=== PATIENT | male | born 1985 | race Caucasian/White ===

== ENCOUNTER 2020-04-07 08:39 | Observation (INO) | payer BC ==
[2020-04-02 15:45] LABS: BASOPHILS # (AUTO) 0.1 (0.0-0.1); BASOPHILS % 0.5 % (0.0-1.0); EOSINOPHILS # (AUTO) 0.2 (0.0-0.4); EOSINOPHILS % 1.5 % (0.0-6.0); HEMATOCRIT 48.2 % (38.2-49.6); HEMOGLOBIN 15.9 g/dL (14.0-18.0); LYMPHOCYTES # (AUTO) 2.5 (1.0-3.2); LYMPHOCYTES % 21.4 % (18.0-39.1); MEAN CORPUSCULAR HEMOGLOBIN 26.8 pg (28-32); MEAN CORPUSCULAR VOLUME 81.3 fL (81-99); MONOCYTES # (AUTO) 0.8 (0.2-0.8); MONOCYTES % 6.8 % (4.4-11.3); NEUTROPHILS # (AUTO) 8.1 (2.1-6.9); NEUTROPHILS % 69.5 % (38.7-80.0); PLATELET COUNT 317 x10e3/uL (140-360); RED BLOOD COUNT 5.93 x10e6/uL (4.3-5.7); RED CELL DISTRIBUTION WIDTH 13.4 % (11.7-14.4)
[~2020-04-07] VITALS: Ht 177.8 cm; Wt 104.3 kg
[~2020-04-07 08:39] MED LIST: METOPROLOL
[2020-04-07] MEDS ORDERED: LISINOPRIL10 MG PO (10:19)
[2020-04-07] MEDS ORDERED: BUPIVACAINE 0.5%/EPI 30 ML SDV INJ ONE (11:05)
[2020-04-07] MEDS ORDERED: LIDOCAINE HCL 1% LOCAL INJ 20 ML VIAL ONE (11:05)
[2020-04-07] MEDS ORDERED: BUPIVACAINE LIPOSOME/PF 266 MG/20 ML IJ ONE (11:05)
[2020-04-07] MEDS ORDERED: LIDOCAINE HCL 2% 30 ML TUBE ONE (11:05)
[2020-04-07] MEDS ORDERED: ACETAMINOPHEN 1000 MG/100 ML IV PRN (13:45)
[2020-04-07] MEDS ORDERED: DIPHENHYDRAMINE HCL INJ 50 MG/ML VIAL ONE (14:03)
--- NOTE | 2020-04-07 14:15 | Operative Report ---
DATE OF PROCEDURE: 04/07/2020 SURGEON: Hunter Peralta MD PREOPERATIVE DIAGNOSIS: Thrombosed prolapsing internal and external hemorrhoids. POSTOPERATIVE DIAGNOSIS: Thrombosed prolapsing internal and external hemorrhoids. OPERATION PERFORMED: Internal and external hemorrhoidectomy. ANESTHESIA: General. COMPLICATIONS: None. ESTIMATED BLOOD LOSS: Minimal. DESCRIPTION OF PROCEDURE: With the patient lying in bed in the lithotomy position under good general anesthesia, the perineum was prepped with Betadine solution and draped in the usual manner. A complete anorectal block was then performed with 0.25% Marcaine and 1% Xylocaine mixed in equal parts. After this was done, examination revealed very extensive external hemorrhoids, extending from about the 3 o'clock position to the 5 o'clock position, and from the 6 o'clock position to the 9 o'clock position. They had the corresponding internal component. The internal component of both groups was then ligated with 0 chromic suture. The external component was then resected and all of the clots were slowly and carefully excised and removed. All of the hemorrhoids were totally resected and removed. Hemostasis was then ascertained and the skin and mucosa were then reapproximated with interrupted sutures of 3-0 chromic. A Gelfoam pack impregnated with Xylocaine was placed. A dressing was applied. The sponge, lap, and needle counts were correct. The patient tolerated the procedure well and returned to the recovery room in stable condition. Hunter Peralta MD JLR/MODL /[id number]
[2020-04-07] MEDS ORDERED: DEXAMETHASONE SOD PHOS INJ 4 MG/ML VIAL ONE (14:57)
[2020-04-07] MEDS ORDERED: PROPOFOL IV EMULSION 10 MG/ML 20 ML VIAL ONE (14:57)
[2020-04-07] MEDS ORDERED: SEVOFLURANE INHAL SOLN 250 ML PEN BTL ONE (14:57)
[2020-04-07] MEDS ORDERED: LIDOCAINE HCL 2% LOCAL INJ 5 ML SDV VIAL INJ ONE (14:57)
[2020-04-07] MEDS ORDERED: EPHEDRINE SULFATE INJ 50 MG/ML VIAL ONE (14:57)
[2020-04-07] MEDS ORDERED: KETOROLAC TROMETHAMINE 30 MG/ML VIAL ONE (14:57)
[2020-04-07] MEDS ORDERED: ONDANSETRON HCL INJ 2MG/ML 2ML 2 MG/ML VIAL ONE (14:57)
[2020-04-07 15:01] VITALS: BP 116/78
[2020-04-07 15:06] VITALS: BP 116/78
[2020-04-07 15:11] VITALS: BP 116/78
--- NOTE | 2020-04-07 15:16 | NUR ---
patient received from PACU via stretcher. see admit assess. vitals stable. dressing to rectal area draining bloody output. SCD's in place.
[2020-04-07] MEDS: HYDROCODONE/APAP 7.5MG-325MG 1 EA TAB PO PRN (15:23)
[2020-04-07] MEDS: DEXTROSE 5%/LACTATED RINGERS 1,000 ML IV SCH (15:23)
[2020-04-07] MEDS: CEFOXITIN 1GM/ D5W 50ML 50 ML IV SCH (16:45)
[2020-04-07 20:00] VITALS: BP 127/85
[2020-04-07 20:10] VITALS: BP 127/85
--- NOTE | 2020-04-07 20:10 | NUR ---
PATIENT RESTING IN BED IN STABLE CONDITION, NO SIGNS OF DISTRESS NOTED. IV FLUIDS ARE RUNNING AT ORDERED RATE AND PATIENT VOICES PAIN AT A LEVEL OF 4, AND REQUESTS NO MEDICATION AT THIS TIME. NO EXCESSIVE BLEEDING NOTED FROM SURGICAL SITE. BED IS IN LOWEST POSITION, BOTH SIDE RAILS ARE UP, CALL LIGHT IS WITHIN EASY REACH, WILL CONTINUE TO MONITOR.
[2020-04-07] MEDS ORDERED: MAGNESIUM/ALUMINUM/SIMETHICONE 30 ML UDC PO PRN (20:30)
[2020-04-07] MEDS ORDERED: PANTOPRAZOLE 40 MG 10ML VIAL IV ONE (20:58)
[2020-04-07] MEDS: HYDROMORPHONE 1MG/1ML INJ IV PRN (23:02)
[2020-04-08] VITALS: BP 122/66
[2020-04-08] MEDS: DEXTROSE 5%/LACTATED RINGERS 1,000 ML IV SCH
[2020-04-08] MEDS: CEFOXITIN 1GM/ D5W 50ML 50 ML IV SCH
[2020-04-08] MEDS: HYDROMORPHONE 1MG/1ML INJ IV PRN ×3 (02:43→11:11)
[2020-04-08 04:00] VITALS: BP 126/79
[2020-04-08 08:00] VITALS: BP 103/55
[2020-04-08] MEDS: HYDROCODONE/APAP 7.5MG-325MG 1 EA TAB PO PRN (08:07)
[2020-04-08 08:36] VITALS: BP 103/55
[2020-04-08] MEDS ORDERED: LISINOPRIL 10 MG TAB PO SCH (09:00)
[2020-04-08 12:00] VITALS: BP 128/71
[2020-04-08] MEDS ORDERED: NORCO 7.5-3251 EACH PO (13:21)
[2020-04-08] MEDS ORDERED: SURFAK240 MG PO (13:22)
[2020-04-08] MEDS ORDERED: KEFLEX500 MG PO (13:22)
== END 2020-04-08 13:40 | disposition hospice, home (50) ==
LOC: OR 08:39 → PACU V 13:47 → MED/SURG 15:05
PROVIDERS: ADMIT Surgery; ATTEND Surgery
DX: K64.8 Other hemorrhoids (principal); Z11.59 Encounter for screening for other viral diseases; Z01.812 Encounter for preprocedural laboratory examination
CPT/HCPCS: 36415; 46260; 85025; 93005; C9113; G0378 ×2; J1100; J1170 ×2; J1200; J1885; J2001 ×2; J2405; J2704; J7121 ×2; U0002

== ENCOUNTER 2020-04-17 20:53 | Observation (INO) | payer BC ==
[~2020-04-17] VITALS: Ht 177.8 cm; Wt 104.3 kg
[~2020-04-17 20:53] MED LIST changes: +KEFLEX500 MG PO; +LISINOPRIL10 MG PO; +NORCO 7.5-3251 EACH PO; +SURFAK240 MG PO
--- OUTSIDE RECORDS SUMMARY | 2020-04-17 21:22 | XMS REPORT | Continuity of Care Document ---
Author Author [facility] Organization [facility] Address [address] [place] [address] Phone Unavailable Care Team Providers Care Frontend Engineer Name Role Phone SEAN DO AVINA PCP Payers Payer Name Policy Type Policy Number Effective Date Expiration Date Samara Burleson [employer] Ppo [id number] 2016 00:00:00 [facility] Problems Condition Name Condition Details Condition Category Status Onset Date Resolution Date Last Treatment Date Treating Clinician Comments Source Problem Condition Active [facility] Allergies, Adverse Reactions, Alerts This patient has no known allergies or adverse reactions. Social History Social Habit Start Date Stop Date Quantity Comments Source Sex Assigned At 1985 00:00:00 1985 00:00:00 Male [facility] Medications Ordered Medication Name Filled Medication Name Start Date Stop Da te Current Medication? Ordering Clinician Indication Dosage Frequency Signature (SIG) Comments Components Source Cephalexin Monohydrate (Keflex) 500 Mg CAPSULE Cephale dori Monohydrate (Keflex) 500 Mg CAPSULE Yes Three Times A Day [facility] Docusate Calcium (Surfak) 240 Mg CAPSULE Docusate Calc ium (Surfak) 240 Mg CAPSULE Yes 500 Twice A Day [facility] Hydrocodone Bit/Acetaminophen ([place] 7.5-325 Tablet) 1 Each TABLET Hydrocodone Bit/Acetaminophen ([place] 7.5-325 Tablet) 1 Each TABLET Yes 1 Every 4 Hours as needed for [facility] Lisinopril Lisinopril Yes 10 Daily [facility] Metoprolol Metoprolol 2020-04-07 00:00:00 No [facility] Vital Signs Vital Name Observation Time Observation Value Comments Source Body Temperature 2020-04-08 12:00:00 97.7 [degF] [facility] Weight 2020-04-07 15:03:00 230 [lb_av] [facility] BMI (Body Mass Index) 2020-04-07 15:03:00 33.0 kg/m2 [facility] Procedures This patient has no known procedures. Plan of Care Planned Activity Planned Date Details Comments Source Instructions Hypertension [facility] Encounters Start Date/Time End Date/Time Encounter Type Admission Type Attendi [facility] Care Department Encounter ID Source 2020-04-07 13:47:00 2020-04-08 13:40:00 Discharged Inpatient (obs) [facility] [id number] [facility] Results Test Description Test Time Test Comments Results Result Comments Source Fluoroscopic procedure less than one hour duration 7 15:58:00 Test Item Coronavirus (PCR) (test code = Coronavirus (PCR)) NOT DETECTED NOTD ETECTED [employer] Aptima SARS-CoV-2 assay is a nucleic amplification test intended for the qualitative detection of RNA from SARS-CoV-2 from nasopharyngeal (MALTED MILK MIXER) specimens . It is used under Emergency Use Authorization (EUA) by FDA.A positive result is indicative of the presence of SARS-CoV-2 RNA. Clinical correlation with patient history and other diagnostic information is necessary to determine patient infe ction status.A negative (Not Detected) result does not preclude SARS-CoV-2 infec tion. Clinical Correlation with patient history and other diagnostic information should be used in patient management decisions.Invalid: Unable to generate a va lid result on this specimen. Please submit a new specimen for reprat testing oc clinically indicated.Tesing performed by:[facility] [address] [place] [address] [id number], Paco Bentley MD, PhD [facility] automated count (number/volume)2020-04-02 15:39:00* Test Item Value Reference Range Interpretation Comments White Blood Count (test code = 6690-2) 11.70 4.8-10.8 [facility] count (number/volume)2020-04-02 15:39:00* Test Item Value Reference Range Interpretation Comments Red Blood Count (test code = 789-8) 5.93 4.3-5.7 [facility] hemoglobin measurement (moles/volume)2020-04-02 15:39:00* Test Item Value Reference Range Interpretation Comments Hemoglobin (test code = 93644-1) 15.9 14.0-18.0 [facility] hematocrit (volume fraction)2020-04-02 15:39:00* Test Item Value Reference Range Interpretation Comments Hematocrit (test code = 4544-3) 48.2 38.2-49.6 [facility] mean corpuscular fiuwph7440-61-35 15:39:00* Test Item Value Reference Range Interpretation Comments Mean Corpuscular Volume (test code = 787-2) 81.3 81-99 [facility] mean corpuscular hemoglobin (mass per erythrocyte)2020-04-02 15:39:00* Test Item Value Reference Range Interpretation Comments Mean Corpuscular Hemoglobin (test code = 785-6) 26.8 28-32 [facility] mean corpuscular hemoglobin concentration measurement (mass/volume)2020-04-02 15:39:00* Test Item Value Reference Range Interpretation Comments Mean Corpuscular Hemoglobin Concent (test code = 786-4) 33.0 31-35 [facility] [id number]-[id number] 15:39:00* Test Item Value Reference Range Interpretation Comments Red Cell Distribution Width (test code = 44176-2) 13.4 11.7 -14.4 [facility] platelet count (count/volume)2020-04-02 15:39:00* Test Item Value Reference Range Interpretation Comments Platelet Count (test code = 777-3) 317 140-360 [facility] neutrophil count as percentage of total yfnsnqwpbl8046-38-09 15:39:00* Test Item Value Reference Range Interpretation Comments Neutrophils (%) (Auto) (test code = 34066-1) 69.5 38.7-80.0 [facility] lymphocyte count as percentage ot total tlmvvnjcsk0213-12-70 15:39:00* Test Item Value Reference Range Interpretation Comments Lymphocytes (%) (Auto) (test code = 736-9) 21.4 18.0-39.1 [facility] monocyte count as percentage of total oczufjtswk0373-96-24 15:39:00* Test Item Value Reference Range Interpretation Comments Monocytes (%) (Auto) (test code = 5905-5) 6.8 4.4-11.3 [facility] eosinophil count as percentage of total sywhhaabip4756-90-29 15:39:00* Test Item Value Reference Range Interpretation Comments Eosinophils (%) (Auto) (test code = 713-8) 1.5 0.0-6.0 [facility] basophil count as percentage of total itggdolodz0520-65-91 15:39:00* Test Item Value Reference Range Interpretation Comments Basophils (%) (Auto) (test code = 706-2) 0.5 0.0-1.0 [facility] procedure less than one hour elrzfyvr6154-54-93 15:39:00* Test Item Value Reference Range Interpretation Comments IM GRANULOCYTES % (test code = IM GRANULOCYTES %) 0.3 0.0- 1.0 [facility] neutrophil count 2020-04-02 15:39:00* Test Item Value Reference Range Interpretation Comments Neutrophils # (Auto) (test code = 751-8) 8.1 2.1-6.9 [facility] count (number/volume) 2020-04-02 15:39:00* Test Item Value Reference Range Interpretation Comments Lymphocytes # (Auto) (test code = 19523-9) 2.5 1.0-3.2 [facility] monocytes automated count (number/volume)2020-04-02 15:39:00* Test Item Value Reference Range Interpretation Comments Monocytes # (Auto) (test code = 742-7) 0.8 0.2-0.8 [facility] eosinophil count 2020-04-02 15:39:00* Test Item Value Reference Range Interpretation Comments Eosinophils # (Auto) (test code = 711-2) 0.2 0.0-0.4 [facility] basophil count (count/volume)2020-04-02 15:39:00* Test Item Value Reference Range Interpretation Comments Basophils # (Auto) (test code = 704-7) 0.1 0.0-0.1 [facility] procedure less than one hour pmnlyaxx9497-99-59 15:39:00* Test Item Value Reference Range Interpretation Comments Absolute Immature Granulocyte (auto (yamil t code = Absolute Immature Granulocyte (auto) 0.03 0-0.1 [facility]
[2020-04-17 22:29] LABS: BASOPHILS # (AUTO) 0.1 (0.0-0.1); BASOPHILS % 0.7 % (0.0-1.0); EOSINOPHILS # (AUTO) 0.2 (0.0-0.4); EOSINOPHILS % 1.5 % (0.0-6.0); HEMATOCRIT 45.3 % (38.2-49.6); HEMOGLOBIN 14.7 g/dL (14.0-18.0); LYMPHOCYTES # (AUTO) 2.5 (1.0-3.2); LYMPHOCYTES % 22.7 % (18.0-39.1); MEAN CORPUSCULAR HEMOGLOBIN 26.8 pg (28-32); MEAN CORPUSCULAR HGB CONC 32.5 g/dL (31-35); MEAN CORPUSCULAR VOLUME 82.7 fL (81-99); MONOCYTES # (AUTO) 0.7 (0.2-0.8); MONOCYTES % 6.1 % (4.4-11.3); NEUTROPHILS # (AUTO) 7.6 (2.1-6.9); NEUTROPHILS % 68.7 % (38.7-80.0); PLATELET COUNT 387 x10e3/uL (140-360); RED BLOOD COUNT 5.48 x10e6/uL (4.3-5.7); RED CELL DISTRIBUTION WIDTH 12.8 % (11.7-14.4)
[2020-04-17 22:43] LABS: ALANINE AMINOTRANSFERASE 40 IU/L (0-55); ALBUMIN 4.3 g/dL (3.5-5.0); ALBUMIN/GLOBULIN RATIO 1.1 (0.8-2.0); ALKALINE PHOSPHATASE 77 IU/L (40-150); ANION GAP 18.1 mmol/L (8-16); BLOOD UREA NITROGEN 21 mg/dL (7-26); BUN/CREATININE RATIO 16 (6-25); CALCIUM 10.1 mg/dL (8.4-10.2); CARBON DIOXIDE 22 mmol/L (22-29); CHLORIDE 106 mmol/L (98-107); CREATININE, SERUM 1.33 mg/dL (0.72-1.25); EST GLOMERULAR FILTRATION RATE > 60 ML/MIN (60-); GLUCOSE 98 mg/dL (74-118); POTASSIUM 4.1 mmol/L (3.5-5.1); SODIUM 142 mmol/L (136-145)
--- NOTE | 2020-04-17 22:46 | Emergency Department Note ---
History of Present Illnes History of Present Illness Chief Complaint: Abdominal Complaints History of Present Illness This is a 34 year old male arrives to the ED with rectal bleeding after having a hemorrhoidectomy done 2 weeks ago . Historian: Patient Arrival Mode: Car Radiation: Reports non-radiation Severity: mild Chronicity: new Context: Reports recent surgery Past Medical/Family History Physician Review I have reviewed the patient's past medical and family history. Any updates have been documented here. Past Medical History Recent Fever: No Clinical Suspicion of Infectio: No New/Unexplained Change in Ment: No Past Medical History: Hypertension Other Surgery: 04/07/2020 - HEMORRHOIDECTOMY AT THIS FACILITY BY DR. Miryam PERALTA Social History Smoking Cessation: Never Smoker Counseling Performed: No Alcohol Use: None Any Illegal Drug Use: No Other Last Tetanus: UTD Any Pre-Existing Lines (PICC,: No Review of Systems Review of Systems Constitutional: Reports no symptoms EENTM: Reports no symptoms Cardiovascular: Reports no symptoms Respiratory: Reports no symptoms Gastrointestinal: Reports no symptoms Genitourinary: Reports as per HPI Musculoskeletal: Reports no symptoms Integumentary: Reports no symptoms Neurological: Reports no symptoms Psychological: Reports no symptoms Endocrine: Reports no symptoms Hematological/Lymphatic: Reports no symptoms Physical Exam Related Data Allergies: Coded Allergies: No Known Allergies (Unverified , 05/11/12) Triage Vital Signs Vital Signs Date Time Temp Pulse Resp B/P (MAP) Pulse Ox O2 Delivery O2 Flow Rate FiO2 04/17/20 21:22 98.4 98 17 152/96 99 Room Air Vital signs reviewed: Yes Physical Exam CONSTITUTIONAL Constitutional: Present well-developed, Present well-nourished HENT HENT: Present normocephalic, Present atraumatic, Present oropharynx clear/moist, Present nose normal HENT L/R: Present left ext ear normal, Present right ext ear normal EYES Eyes: Reports PERRL, Reports conjunctivae normal NECK Neck: Present ROM normal PULMONARY Pulmonary: Present effort normal, Present breath sounds normal CARDIOVASCULAR Cardiovascular: Present regular rhythm, Present heart sounds normal, Present capillary refill normal, Present normal rate GASTROINTESTINAL Abdominal: Present soft, Present nontender, Present bowel sounds normal GENITOURINARY Genitourinary: Present other (bleeding noted from 3 o'clock position of recent thyroidectomy) SKIN Skin: Present warm, Present dry MUSCULOSKELETAL Musculoskeletal: Present ROM normal NEUROLOGICAL Neurological: Present alert, Present oriented x 3, Present no gross motor or sensory deficits PSYCHOLOGICAL Psychological: Present mood/affect normal, Present judgement normal Results Laboratory Lab results reviewed: Yes Laboratory comments Laboratory Tests Test 04/17/20 21:40 White Blood Count 10.99 x10e3/uL (4.8-10.8) Red Blood Count 5.48 x10e6/uL (4.3-5.7) Hemoglobin 14.7 g/dL (14.0-18.0) Hematocrit 45.3 % (38.2-49.6) Mean Corpuscular Volume 82.7 fL (81-99) Mean Corpuscular Hemoglobin 26.8 pg (28-32) Mean Corpuscular Hemoglobin Concent 32.5 g/dL (31-35) Red Cell Distribution Width 12.8 % (11.7-14.4) Platelet Count 387 x10e3/uL (140-360) Neutrophils (%) (Auto) 68.7 % (38.7-80.0) Lymphocytes (%) (Auto) 22.7 % (18.0-39.1) Monocytes (%) (Auto) 6.1 % (4.4-11.3) Eosinophils (%) (Auto) 1.5 % (0.0-6.0) Basophils (%) (Auto) 0.7 % (0.0-1.0) Neutrophils # (Auto) 7.6 (2.1-6.9) Lymphocytes # (Auto) 2.5 (1.0-3.2) Monocytes # (Auto) 0.7 (0.2-0.8) Eosinophils # (Auto) 0.2 (0.0-0.4) Basophils # (Auto) 0.1 (0.0-0.1) Absolute Immature Granulocyte (auto 0.03 x10e3/uL (0-0.1) Imaging Imaging results reviewed: Yes Assessment & Plan Medical Decision Making MDM 34-year-old male arrives to the ED with rectal bleeding after hemorrhoidectomy. Nonpulsatile bleeding noted at incision site. Surgicel and pressure dressing applied. Dr. Peralta informed, patient admitted to surgical service, kept not steve by mouth with morning hemoglobin/hematocrit pending. H&H in the ED normal at time of admission patient's otherwise hemodynamically stable. Assessment & Plan Final Impression: (1) Post-op bleeding Depart Disposition: HOME, SELF-CARE Last Vital Signs Date Time Temp Pulse Resp B/P (MAP) Pulse Ox O2 Delivery O2 Flow Rate FiO2 04/17/20 21:22 98.4 98 17 152/96 99 Room Air Home Meds Reported Medications Docusate Calcium (SURFAK) 240 Mg Capsule, 500 MG PO BID 04/08/20 Cephalexin Monohydrate (KEFLEX) 500 Mg Capsule, MG PO TID 04/08/20 Hydrocodone Bit/Acetaminophen ([place] 7.5-325 TABLET) 1 Each Tablet, 1 TAB PO Q4H PRN, TAB 04/08/20 Lisinopril (LISINOPRIL) 10 Mg Tablet, 10 MG PO DAILY, #30 TAB 04/07/20 LESTER BRUSH, Apr 17, 2020 22:46
[2020-04-17 22:51] LABS: INR 0.87; PROTHROMBIN TIME 12.3 seconds (11.9-14.5)
[2020-04-17 22:52] LABS: PARTIAL THROMBOPLASTIN TIME 35.8 seconds (23.8-35.5)
[2020-04-17] MEDS ORDERED: LIDOCAINE/PRILOCAINE 2.5-2.5% KIT ONE (23:04)
--- OUTSIDE RECORDS SUMMARY | 2020-04-17 23:20 | XMS REPORT | Continuity of Care Document ---
Author Author [facility] Organization [facility] Address [address] [place] [address] Phone Unavailable Care Team Providers Care Biomedical Equipment Support Specialist Name Role Phone SEAN DO AVINA PCP Payers Payer Name Policy Type Policy Number Effective Date Expiration Date Samara Burleson [employer] Ppo [id number] 2016 00:00:00 [facility] Problems Condition Name Condition Details Condition Category Status Onset Date Resolution Date Last Treatment Date Treating Clinician Comments Source Problem Condition Active [facility] Allergies, Adverse Reactions, Alerts This patient has no known allergies or adverse reactions. Social History Social Habit Start Date Stop Date Quantity Comments Source Sex Ass[birth year] At 1985 00:00:00 1985 00:00:00 Male [facility] Medications Ordered Medication Name Filled Medication Name Start Date Stop Da te Current Medication? Ordering Clinician Indication Dosage Frequency Signature (SIG) Comments Components Source Cephalexin Monohydrate (Keflex) 500 Mg CAPSULE Cephale dori Monohydrate (Keflex) 500 Mg CAPSULE Yes Three Times A Day [facility] Docusate Calcium (Surfak) 240 Mg CAPSULE Docusate Calc ium (Surfak) 240 Mg CAPSULE Yes 500 Twice A Day [facility] Hydrocodone Bit/Acetaminophen ([place] 7.5-325 Tablet) 1 Each TABLET Hydrocodone Bit/Acetaminophen ([place] 7.5-325 Tablet) 1 Each TABLET Yes 1 Every 4 Hours as needed for [facility] Lisinopril Lisinopril Yes 10 Daily [facility] I [facility] Metoprolol Metoprolol 2020-04-07 00:00:00 No [facility] Vital Signs Vital Name Observation Time Observation Value Comments Source Body Temperature 2020-04-08 12:00:00 97.7 [degF] [facility] Weight 2020-04-07 15:03:00 230 [lb_av] [facility] BMI (Body Mass Index) 2020-04-07 15:03:00 33.0 kg/m2 [facility] Procedures This patient has no known procedures. Plan of Care Planned Activity Planned Date Details Comments Source Instructions Hypertension [facility] Encounters Start Date/Time End Date/Time Encounter Type Admission Type Attendi [facility] Care Department Encounter ID Source 2020-04-07 13:47:00 2020-04-08 13:40:00 Discharged Inpatient (obs) [facility] [id number] [facility] Results Test Description Test Time Test Comments Results Result Comments Source Fluoroscopic procedure less than one hour duration 7 15:58:00 Test Item Coronavirus (PCR) (test code = Coronavirus (PCR)) NOT DETECTED NOTD ETECTED [employer] Apt[employer] SARS-CoV-2 assay is a nucleic amplification test intended for the qualitative detection of RNA from SARS-CoV-2 from nasopharyngeal (DRESSING ROOM ATTENDANT) specimens . It is used under Emergency [...] for reprat testing oc clinically indicated.Tesing performed by:[facility] [address] [place] [address] [id number], Paco Bentley MD, PhD [facility] automated count (number/volume)2020-04-02 15:39:00* Test Item Value Reference Range Interpretation Comments White Blood Count (test code = 6690-2) 11.70 4.8-10.8 [facility] automated count (number/volume)2020-04-02 15:39:00* Test Item Value Reference Range Interpretation Comments Red Blood Count (test code = 789-8) 5.93 4.3-5.7 [facility] hemoglobin measurement (moles/volume)2020-04-02 15:39:00* Test Item Value Reference Range Interpretation Comments Hemoglobin (test code = 90647-6) 15.9 14.0-18.0 [facility] hematocrit (volume fraction)2020-04-02 15:39:00* Test Item Value Reference Range Interpretation Comments Hematocrit (test code = 4544-3) 48.2 38.2-49.6 [facility] erythrocyte mean corpuscular nsypqy0372-59-05 15:39:00* Test Item Value Reference Range Interpretation Comments Mean Corpuscular Volume (test code = 787-2) 81.3 81-99 [facility] mean corpuscular hemoglobin (mass per erythrocyte)2020-04-02 15:39:00* Test Item Value Reference Range Interpretation Comments Mean Corpuscular Hemoglobin (test code = 785-6) 26.8 28-32 [facility] eryth[facility] mean corpuscular hemoglobin concentration measurement (mass/volume)2020-04-02 15:39:00* Test Item Value Reference Range Interpretation Comments Mean Corpuscular Hemoglobin Concent (test code = 786-4) 33.0 31-35 [facility] CenterRDW OecLh-Koa3409-37-07 15:39:00* Test Item Value Reference Range Interpretation Comments Red Cell Distribution Width (test code = 31274-0) 13.4 11.7 -14.4 [facility] platelet count (count/volume)2020-04-02 15:39:00* Test Item Value Reference Range Interpretation Comments Platelet Count (test code = 777-3) 317 140-360 [facility] neutrophil count as percentage of total qtmevmjevj3872-86-49 15:39:00* Test Item Value Reference Range Interpretation Comments Neutrophils (%) (Auto) (test code = 25889-3) 69.5 38.7-80.0 [facility] lymphocyte count as percentage ot total sstpswgscz5422-99-07 15:39:00* Test Item Value Reference Range Interpretation Comments Lymphocytes (%) (Auto) (test code = 736-9) 21.4 18.0-39.1 [facility] monocyte count as percentage of total epftteexxv7945-13-08 15:39:00* Test Item Value Reference Range Interpretation Comments Monocytes (%) (Auto) (test code = 5905-5) 6.8 4.4-11.3 [facility] eosinophil count as percentage of total rwknydmodm2823-19-29 15:39:00* Test Item Value Reference Range Interpretation Comments Eosinophils (%) (Auto) (test code = 713-8) 1.5 0.0-6.0 [facility] blood basophil count as percentage of total fmxaqacdli3223-66-63 15:39:00* Test Item Value Reference Range Interpretation Comments Basophils (%) (Auto) (test code = 706-2) 0.5 0.0-1.0 [facility] CenterFlu[facility] procedure less than one hour mpwtjqmz8557-58-95 15:39:00* Test Item Value Reference Range Interpretation Comments IM GRANULOCYTES % (test code = IM GRANULOCYTES %) 0.3 0.0- 1.0 [facility] neutrophil count 2020-04-02 15:39:00* Test Item Value Reference Range Interpretation Comments Neutrophils # (Auto) (test code = 751-8) 8.1 2.1-6.9 [facility] lymphocytes count (number/volume) 2020-04-02 15:39:00* Test Item Value Reference Range Interpretation Comments Lymphocytes # (Auto) (test code = 47129-0) 2.5 1.0-3.2 [facility] monocytes automated count (number/volume)2020-04-02 15:39:00* Test Item Value Reference Range Interpretation Comments Monocytes # (Auto) (test code = 742-7) 0.8 0.2-0.8 [facility] eosinophil count 2020-04-02 15:39:00* Test Item Value Reference Range Interpretation Comments Eosinophils # (Auto) (test code = 711-2) 0.2 0.0-0.4 [facility] blood basophil count (count/volume)2020-04-02 15:39:00* Test Item Value Reference Range Interpretation Comments Basophils # (Auto) (test code = 704-7) 0.1 0.0-0.1 [facility] CenterFluor[facility] procedure less than one hour oyvlzbkn5228-49-23 15:39:00* Test Item Value Reference Range Interpretation Comments Absolute Immature Granulocyte (auto (yamil t code = Absolute Immature Granulocyte (auto) 0.03 0-0.1 [facility]
[2020-04-18] VITALS (11 sets, daily range): BP systolic 127–153; BP diastolic 75–100
--- NOTE | 2020-04-18 02:30 | NUR ---
patient is a new admit that arrived via the stretcher. patient is awake and talking. patient has been helped into the bed. bed is in the lowest position and call light is within reach. will continue to monitor patient.
[2020-04-18] MEDS: SODIUM CHLORIDE 0.9% 1000ML 1,000 ML IV SCH ×3 (02:42→15:00)
[2020-04-18 06:13] LABS: BASOPHILS # (AUTO) 0.1 (0.0-0.1); BASOPHILS % 0.7 % (0.0-1.0); EOSINOPHILS # (AUTO) 0.3 (0.0-0.4); EOSINOPHILS % 2.8 % (0.0-6.0); HEMATOCRIT 40.4 % (38.2-49.6); HEMOGLOBIN 13.8 g/dL (14.0-18.0); LYMPHOCYTES # (AUTO) 3.4 (1.0-3.2); LYMPHOCYTES % 36.2 % (18.0-39.1); MEAN CORPUSCULAR HEMOGLOBIN 30.3 pg (28-32); MEAN CORPUSCULAR HGB CONC 34.2 g/dL (31-35); MEAN CORPUSCULAR VOLUME 88.6 fL (81-99); MONOCYTES # (AUTO) 0.7 (0.2-0.8); PLATELET COUNT 262 x10e3/uL (140-360); RED BLOOD COUNT 4.56 x10e6/uL (4.3-5.7); RED CELL DISTRIBUTION WIDTH 15.5 % (11.7-14.4)
--- NOTE | 2020-04-18 06:28 | NUR ---
patient is resting in the bed comfortably
--- NOTE | 2020-04-18 19:40 | NUR ---
received report. patient is resting in the bed. bed is in the lowest position and call light is within reach. will continue to monitor patient.
[2020-04-19] VITALS: BP 141/92
[2020-04-19 00:15] VITALS: BP 137/98
[2020-04-19 04:00] VITALS: BP 125/99
[2020-04-19] MEDS: SODIUM CHLORIDE 0.9% 1000ML 1,000 ML IV SCH ×2 (05:17→10:02)
[2020-04-19 06:09] LABS: BASOPHILS # (AUTO) 0.1 (0.0-0.1); BASOPHILS % 0.5 % (0.0-1.0); EOSINOPHILS # (AUTO) 0.2 (0.0-0.4); EOSINOPHILS % 1.7 % (0.0-6.0); HEMATOCRIT 42.3 % (38.2-49.6); HEMOGLOBIN 13.6 g/dL (14.0-18.0); LYMPHOCYTES # (AUTO) 2.5 (1.0-3.2); LYMPHOCYTES % 24.6 % (18.0-39.1); MEAN CORPUSCULAR HEMOGLOBIN 26.7 pg (28-32); MEAN CORPUSCULAR HGB CONC 32.2 g/dL (31-35); MEAN CORPUSCULAR VOLUME 82.9 fL (81-99); MONOCYTES # (AUTO) 0.6 (0.2-0.8); NEUTROPHILS # (AUTO) 6.7 (2.1-6.9); NEUTROPHILS % 66.8 % (38.7-80.0); PLATELET COUNT 339 x10e3/uL (140-360); RED CELL DISTRIBUTION WIDTH 12.6 % (11.7-14.4)
--- NOTE | 2020-04-19 06:31 | NUR ---
patient is resting in the bed. bed is in lowest position and call light is within reach.
[2020-04-19 08:00] VITALS: BP 143/104
[2020-04-19 08:39] VITALS: BP 143/104
[2020-04-19 12:30] VITALS: BP 155/99
--- NOTE | 2020-04-19 15:01 | NUR ---
Patient received discharge order from Dr. Peralta. Patient was given discharge prescriptions, instructions, and education. Patient verbalized understanding. Patient IV removed and covered with a C/D/I dressing at 1430. Patient wheeled to private auto in a wheelchair at 1448. No other issues or complaints.
== END 2020-04-19 14:53 | disposition home or self-care (01) ==
LOC: ER 21:19 → ERHOLD 23:13 → MED/SURG 04-18 02:05
PROVIDERS: ADMIT Surgery; ATTEND Surgery
DX: K91.840 Postprocedural hemorrhage of a digestive system organ or structure following a digestive system procedure (principal); Z11.59 Encounter for screening for other viral diseases
CPT/HCPCS: 36415 ×3; 80053; 85025 ×3; 85610; 85730; 86850; 86900; 96361; 99284; G0378 ×3; J7030 ×2; U0002